=== PATIENT | male | born 1950 | race Caucasian/White ===

== ENCOUNTER → 2017-08-24 | Outpatient (CLI) | payer OTHER | LOC: BHFA 13:00 | PROVIDERS: ATTEND Internal Medicine Cardiovascular Disease | DX: I44.7 Left bundle-branch block, unspecified (principal); I10 Essential (primary) hypertension | CPT/HCPCS: 78452; 93017; A9500; J2785 ==

== ENCOUNTER → 2018-09-30 | Outpatient (CLI) | payer OTHER | LOC: BHCLAF 08:30 | PROVIDERS: ATTEND Internal Medicine Cardiovascular Disease | DX: I25.10 Atherosclerotic heart disease of native coronary artery without angina pectoris (principal); I10 Essential (primary) hypertension; E11.9 Type 2 diabetes mellitus without complications | CPT/HCPCS: 93306-PO ==

== ENCOUNTER → 2018-10-09 | Outpatient (CLI) | payer OTHER | LOC: BHFA 08:30 | PROVIDERS: ATTEND Internal Medicine Cardiovascular Disease | DX: I25.10 Atherosclerotic heart disease of native coronary artery without angina pectoris (principal) | CPT/HCPCS: 78452; 93017; A9500; J2785 ==

== ENCOUNTER 2018-10-30 11:09 | Day surgery (SDC) | payer OTHER ==
[2018-10-30] MEDS ORDERED: ASPIRIN EC 325 MG TAB PO ONE ×2 (11:36→12:30)
[2018-10-30] MEDS ORDERED: NS 1,000 ML IV ONE ×2 (11:36→12:30)
[2018-10-30] MEDS ORDERED: diphenhydrAMINE 25 MG CAP PO ONE ×2 (11:36→12:30)
[2018-10-30] MEDS ORDERED: DIAZEPAM 5 MG TAB PO ONE ×2 (11:36→12:30)
[2018-10-30] MEDS ORDERED: FAMOTIDINE 20 MG TAB PO ONE ×2 (11:36→12:30)
--- NOTE | 2018-10-30 12:02 | PDPROPOC ---
Sedation Plan of Care Sedation Plan of Care: vital signs stable, mental status noted, patient educated of risks, benefits, alternatives, patient can tolerate sedation ASA Classification: ASA 2 Planned drugs: fentanyl, midazolam Mallampati Score: Class 2 Mallampati Reference Image: Patient passed 3-3-2 rule?: Yes
--- NOTE | 2018-10-30 12:02 | PDHPUP ---
History & Physical Update H&P update statement: This history and physical update is based on an assessment of the patient which was completed after admission or registration (within 24 hours), but prior to the surgery/procedure. H&P update: H&P reviewed & patient examined, no change in patient's condition since H&P completed
[2018-10-30 12:36] LABS: PLATELET COUNT 250 10^3/uL (150-400)
[2018-10-30 12:47] LABS: INR 1.03 (0.83-1.16); PROTIME(PATIENT) 13.1 SEC (12.0-15.0)
[2018-10-30] MEDS ORDERED: HEPARIN 10,000 UNIT/10 ML MDV (1,000 UNIT/ML) ONE (13:58)
[2018-10-30] MEDS ORDERED: IOPAMIDOL (ISOVUE-370) 150 ML BTL IV ONE (13:58)
[2018-10-30] MEDS ORDERED: fentaNYL 100 MCG/2 ML INJ ONE (13:58)
[2018-10-30] MEDS ORDERED: VERAPAMIL 5 MG/2 ML VIAL ONE (13:58)
[2018-10-30] MEDS ORDERED: LIDOCAINE 1% 300 MG/30 ML SDV ONE (13:58)
[2018-10-30] MEDS ORDERED: MIDAZOLAM 2 MG/2 ML VIAL ONE (13:58)
[2018-10-30] MEDS ORDERED: OXYCODONE/APAP 5/325 TAB PO PRN (15:15)
--- NOTE | 2018-10-30 17:18 | PDDXCAT ---
Diagnostic Cath Note - . Date: 10/30/18 Hr Internship: [facility] Referral Coordinator: Balwinder Indication: Serial noninvasive testing w progressively worsening abnormalities - Procedure Access: right wrist Procedure: left heart catheterization, coronary angiography - Materials Left Heart Cath size: 5F Left Heart Cath materials: JL3.5, JR4.0 - Findings-Left Heart Catheterization LM: Distal 50-60% stenosis LAD: 80% proximal stenosis. 90% proximal 1st diagonal with LEONARDO 2 flow in the remainder of the diagonal. LCX: The left circ is heavily calcified. 50% mid vessel stenosis. There is high-grade diffuse disease in the 1st obtuse marginal with LEONARDO 2 flow in that branch. 2nd obtuse marginal with diffuse moderate disease. RCA: Dominant vessel. Serial 30-50% stenosis mid vessel. Diffuse distal disease Complications: none Estimated blood loss: <50ml Closure method: TR Band Assessment: Multivessel coronary disease including distal left main, proximal LAD, high-grade 1st diagonal that appears to be a large vessel based on 2012 films. Also obtuse marginal disease. Left ventriculogram was not performed due to the patient's creatinine of 1.5. Aortic pressure was normal during the case. Plan: Results discussed with Dr. Joel Vazquez Patient will have outpatient surgical consult tomorrow, October 31, at 9:00 a.m.. He is clinically stable for discharge this evening. Patient Problems: Problems Problem Status Onset CAD (coronary artery disease) Acute
== END 2018-10-30 17:30 | disposition home or self-care (01) ==
LOC: FCATH 11:09
PROVIDERS: ATTEND Internal Medicine Cardiovascular Disease
PROC: 4A023N7 Measurement of Cardiac Sampling and Pressure, Left Heart, Percutaneous Approach (ICD-10-PCS; principal; 2018-10-30)
PROC: B2111ZZ Fluoroscopy of Multiple Coronary Arteries using Low Osmolar Contrast (ICD-10-PCS; principal; 2018-10-30)
DX: I25.10 Atherosclerotic heart disease of native coronary artery without angina pectoris (principal); I10 Essential (primary) hypertension; I77.810 Thoracic aortic ectasia; E11.9 Type 2 diabetes mellitus without complications; E78.5 Hyperlipidemia, unspecified; I44.7 Left bundle-branch block, unspecified; E66.9 Obesity, unspecified; Z95.5 Presence of coronary angioplasty implant and graft; Z68.41 Body mass index [BMI] 40.0-44.9, adult
CPT/HCPCS: 93458; C1769; J1644; J2250; J3010; Q9967

== ENCOUNTER → 2018-11-06 | Outpatient (CLI) | payer OTHER | LOC: BHFA 16:15 | PROVIDERS: ATTEND Internal Medicine Cardiovascular Disease | DX: R09.89 Other specified symptoms and signs involving the circulatory and respiratory systems (principal) ==

== ENCOUNTER → 2018-12-26 | Outpatient (CLI) | payer OTHER | LOC: CIMAGING 12:17 | PROVIDERS: ATTEND Thoracic Surgery (Cardiothoracic Vascular Surgery) | DX: Z01.810 Encounter for preprocedural cardiovascular examination (principal); I25.10 Atherosclerotic heart disease of native coronary artery without angina pectoris; I50.9 Heart failure, unspecified | CPT/HCPCS: 71046-PO; 93880-PO; 93970-PO ==

== ENCOUNTER 2019-02-05 07:18 | Inpatient (IN) | payer OTHER | END 2019-02-11 14:02 | LOC: F3N 07:18 → F2W 02-09 14:20 → F2N 12:19 ==

== ENCOUNTER → 2019-02-18 | Outpatient (CLI) | payer OTHER | LOC: FIMAGING 08:57 ==